=== PATIENT | female | born 1975 | race African-American/Black ===

== ENCOUNTER 2016-06-09 10:57 | Emergency (ER) ==
[2016-06-09 11:05] VITALS: BP 149/88; TEMP 98.6; BMI 32.8
[2016-06-09] MEDS ORDERED: TORADOL IM STA (11:11)
[2016-06-09] MEDS ORDERED: KEFLEX PO STA (11:11)
--- NOTE | 2016-06-09 11:14 | ED.PDOC ---
General ED Provider: Dr. DINORA JENNINGS Chief Complaint: Earache Stated Complaint: Been hurting in the right ear since friday, has f/u with ENT, Time Seen by Physician: 11:12 Mode of Arrival: Walk-In Information Source: Patient Primary Care Provider: KELLEY WELLER Nursing and Triage Documentation Reviewed and Agree: Yes EENT Complaint Exam - Ear Complaint/Exam Symptoms Are: Still present Timing: Constant Initial Severity: Moderate Current Severity: Moderate Aggravating: Reports: None Alleviating: Reports: None Associated Signs and Symptoms: Reports: Ear swelling. Denies: Ear trauma, Discharge, Fever, Hearing loss, Bleeding, Sore throat, Headache, URI symptoms, Foreign body sensation, Rash, Pain to external ear, Pain to external face Ear Surgical History: None Vesicles to External Pinna: No Vesicles to Tragus: No TMJ Tenderness: None Mastoid Tenderness: None Tragal Tenderness: None External Canal: Edema, Erythema, Tenderness Differential Diagnoses: Otitis Externa, Otitis Media Review of Systems - Review Of Systems Constitutional: Reports: No symptoms Eyes: Reports: No symptoms Ears, Nose, Mouth, Throat: Reports: Ear pain Respiratory: Reports: No symptoms Cardiac: Reports: No symptoms GI: Reports: No symptoms : Reports: No symptoms Musculoskeletal: Reports: No symptoms Skin: Reports: No symptoms Neurological: Reports: No symptoms Endocrine: Reports: No symptoms Hematologic/Lymphatic: Reports: No symptoms All Other Systems: Reviewed and Negative Past Medical History - Past Medical History Previously Healthy: No Endocrine: Reports: None Cardiovascular: Reports: None Respiratory: Reports: None Hematological: Reports: None Gastrointestinal: Reports: None Genitourinary: Reports: None Neuro/Psych: Reports: None Musculoskeletal: Reports: None Cancer: Reports: None Last Menstrual Period: 3 weeks ago - Surgical History General Surgical History: Reports: None - Family History Family History: Reports: None - Social History Smoking Status: Never smoker Hx Substance Use: No Alcohol Screening: None Physical Exam - Physical Exam Appearance: Well-appearing, No pain distress, Well-nourished Eyes: SUE, EOMI, Conjunctiva clear ENT: Ears normal (rt ear can swollen, tender, could not see TM) Respiratory: Airway patent, Breath sounds clear, Breath sounds equal, Respirations nonlabored Cardiovascular: RRR, Pulses normal, No rub, No murmur GI/: Soft, Nontender, No masses, Bowel sounds normal, No Organomegaly Musculoskeletal: Normal strength, ROM intact, No edema, No calf tenderness Skin: Warm, Dry, Normal color Neurological: Sensation intact, Motor intact, Reflexes intact, Cranial nerves intact, Alert, Oriented Psychiatric: Affect appropriate, Mood appropriate Critical Care Note - Critical Care Note Total Time (mins): 0 Course - Course Orders, Labs, Meds: Orders Category Date Time Status Cephalexin [Keflex] MEDS 06/09/16 11:11 Stat 500 mg PO ONCE STA Ketorolac Tromethamine [Toradol] MEDS 06/09/16 11:11 Stat 60 mg IM ONCE STA Vital Signs: Temp Pulse Resp BP Pulse Ox 06/09/16 10:59 98.6 F 98 H 16 149/88 H 98 Departure - Departure Time of Disposition: 11:50 Disposition: HOME SELF-CARE Discharge Problem: Otitis externa Qualifiers: Otitis externa type: diffuse Laterality: right Chronicity: acute Qualifier Code : (H60.311) Diffuse otitis externa, right ear Otitis media Qualifiers: Otitis media type: serous Laterality: right Chronicity: acute Recurrence: not specified as recurrent Qualifier Code: (H65.01) Acute serous otitis media, right ear Instructions: Otitis Externa (ED) Condition: Stable Pt referred to PMD for follow-up: Yes Additional Instructions: keep taking tylenol prn keep f/u with ENT Prescriptions: Cephalexin [Keflex] 500 mg PO Q12HR #20 capsule Hydrocodone/Acetaminophen [[place] 5-325 Tablet] 1 tab PO TID PRN #12 tablet PRN Reason: PAIN Allergies/Adverse Reactions: Allergies shellfish derived Allergy (Severe, Unverified 06/09/16 11:03) Anaphylaxis Penicillins Allergy (Unknown, Unverified 06/09/16 11:03) Home Medications: Ambulatory Orders Cephalexin [Keflex] 500 mg PO Q12HR #20 capsule 06/09/16 Hydrocodone/Acetaminophen [[place] 5-325 Tablet] 1 tab PO TID PRN #12 tablet 06/09 L.acidoph,Paracasei, B.lactis [Probiotic] 1 each PO DAILY 06/09/16 Norelgestromin/Ethin.estradiol [Xulane Patch] 1 each TD DAILY 06/09/16 Spironolactone 50 mg PO BID 06/09/16 Disposition Discussed With: Patient
== END 2016-06-09 12:44 | disposition home or self-care (01) ==
LOC: ED 10:57
DX: H60.311 Diffuse otitis externa, right ear (principal); H65.01 Acute serous otitis media, right ear
CPT/HCPCS: 96372; 99283